=== PATIENT | female | born 1950 | race Caucasian/White ===

== ENCOUNTER → 2017-11-15 | Outpatient (CLI) | payer OTHER ==
[~2017-11-15] MED LIST: ALLERGY 4-HOUR4 MG PO; CALCIUM 600 +1 EAC1 PO; CIPRO500 MG PO; DEXILANT60 MG PO; FIBER500 MG PO; FIBER625 MG PO; FISH OIL 1,001000 M1 PO; FISH OIL300 MG PO; GEMFIBROZIL 60600 MG PO; MICARDIS HCT 81 EAC1 PO; MULTIVITAMINS PO; NORVASC2.5 MG PO; RED YEAST RICE600 MG PO; Red Yeast Rice PO; TOPROL XL100 MG PO; TUMS PO; UNICOMPLEX M TA1 TA1 PO
== END ==
LOC: M.RAD 07:45
DX: Z12.31 Encounter for screening mammogram for malignant neoplasm of breast (principal)

== ENCOUNTER → 2018-04-03 | Outpatient (CLI) | payer OTHER | LOC: M.RAD 15:57 | DX: M85.89 Other specified disorders of bone density and structure, multiple sites (principal); Z78.0 Asymptomatic menopausal state ==